=== PATIENT | female | born 1960 | race Caucasian/White ===

== ENCOUNTER 2024-05-01 07:52 | Outpatient (CLI) | payer OTHER, SELFPAY ==
--- NOTE | ~2024-05-01 | MR_ITS ---
EXAMINATION: MR lumbar spine wo con DATE: 05/01/2024 08:27 INDICATION: Disc displacement presenting with 3 months of right buttock pain while walking TECHNIQUE: Magnetic resonance imaging (MRI) of the lumbar spine was performed without intravenous con trast. Sequences included sagittal T2-weighted FSE, sagittal T2-weighted FS FSE, sagittal T1-weighted FSE, and axial T2-weighted FSE. COMPARISON: None FINDINGS: Alignment is normal. Vertebral body heights are normal. T1 hyperintense fibrofatty degenerative endpl ate changes at the left side of L5-S1 as well as along the margins of Schmorl's nodes at the right po sterior aspect of the superior endplates of the L4 and L5 vertebral bodies. Mild disc desiccation thr oughout the lumbar spine without disc height loss at T12-L1 with mild disc height loss at L1-L2, L3-L 4 through L5-S1 and with moderate disc height loss at L2-L3. There is associated fibrovascular degene rative endplate changes along the anterior superior plate of L3. Small T1 hyperintense likely hemangi grady at L2. Marrow signal is otherwise unremarkable. There are annular fissures at L1-L2 through L5-S1 . The conus medullaris terminates at L1-L2. There is normal signal in the caudal spinal cord. Paraver tebral soft tissues are unremarkable. The following disc levels are specifically discussed: T12-L1: Disc is mildly bulging. There is moderate bilateral facet joint osteoarthritis. There is no n eural foraminal stenosis. There is no central canal stenosis. L1-L2: Disc is mildly bulging with superimposed annular fissure and moderate sized left paracentral d isc protrusion. There is mild bilateral facet joint osteoarthritis. There is minimal left neural fora solo stenosis. There is mild stenosis of the central canal and left lateral recess. L2-L3: Diffuse disc bulge. There is mild bilateral facet joint osteoarthritis. There is mild bilatera l neural foraminal stenosis. There is mild central canal stenosis. L3-L4: Disc is mildly bulging. There is moderate left and severe right facet joint osteoarthritis. Th ere is mild bilateral neural foraminal stenosis. There is mild central canal stenosis. L4-L5: Annular fissure with central disc protrusion which extends from foraminal zone to foraminal zo ne. There is severe bilateral facet joint osteoarthritis. There is moderate left and mild to moderate right neural foraminal stenosis. There is mild central canal stenosis. L5-S1: Annular fissure with central to left foraminal zone disc protrusion. There is moderate right a nd severe left facet joint osteoarthritis. There is mild bilateral neural foraminal stenosis. There i s mild central canal stenosis. IMPRESSION: 1. Mild to moderate lumbar spondylosis. Reviewed, dictated and finalized at location A.
== END 2024-05-01 07:53 | disposition home or self-care (01) ==
LOC: MICIMG 07:53
PROVIDERS: PCP Family Medicine; Visit Provider Nurse Practitioner
DX: M47.816 Spondylosis without myelopathy or radiculopathy, lumbar region (principal); M51.26 Other intervertebral disc displacement, lumbar region
CPT/HCPCS: 72148

== ENCOUNTER 2024-05-09 11:02 | Day surgery (SDC) | payer OTHER, SELFPAY ==
[2024-04-09 11:08] VITALS: BMI 35.3
[2024-04-22 10:41] VITALS: BMI 32.9
[2024-05-09 12:50] VITALS: BMI 32.7
[2024-05-09 12:52] VITALS: BP 126/94; PULSE 84; RESP 16; TEMP 36.9; O2SAT 97
[2024-05-09] MEDS: LACTATED RINGERS 1,000 ML 150 ML IV CONT (13:09)
--- NOTE | 2024-05-09 13:25 | PM.HPGS ---
History of Present Illness History of Present Illness Consent: Risks, benefits, and alternatives have been discussed and questions answered. Patient agrees to proceed with procedure. Chief complaint: Neoplasm Screening Narrative: Irina Kim is a 64 year old female presents for screening colonoscopy. Patient's current weight appetite and bowel movements are normal. Patient denies abdominal pain. She has had no bleeding. Family history non S colonoscopy 12 years ago was unremarkable. Review of Systems Review of Systems: All systems reviewed & are unremarkable except as noted in HPI and below PMFSH Past Medical History Medical History (Updated 05/09/24 @ 13:27 by Felix De Luna MD) Hyperlipidemia Hypertension Social History Social History Smoking status: Former smoker Tobacco type: cigarettes Alcohol intake: current Drinks per week: 7 Substance use type: does not use Living arrangements: with family Spiritual care concerns: No Meds Home Medications and Allergies Home Medications Medication Instructions Recorded Confirmed Type aspirin 81 mg tablet 81 mg PO DAILY 04/22/24 05/09/24 History ezetimibe 10 mg tablet 10 mg PO DAILY 04/22/24 05/09/24 History naproxen sodium 220 mg tablet 220 mg PO BID PRN Pain 04/22/24 05/09/24 History (Aleve) olmesartan 40 1 tablet PO DAILY 04/22/24 05/09/24 History mg-hydrochlorothiazide 12.5 mg tablet omega-3 700 mg-dha and epa 600 1 cap PO DAILY 04/22/24 05/09/24 History mg-fish and krill oil 900 mg capsule Allergies Allergy/AdvReac Type Severity Reaction Status Date / Time No Known Allergies Allergy Verified 05/09/24 12:47 Vital Signs Vital Signs - 24 hr 05/09/24 12:52 Temperature 98.5 F Pulse Rate 84 Respiratory Rate 16 Blood Pressure 126/94 H Pulse Oximetry 97 Oxygen Delivery Room Air Exam Narrative: Physical exam reveals patient to be alert. Vital signs stable. HEENT exam is unremarkable. Patient is anicteric. Lungs are clear to auscultation and to percussion. Heart is without murmur or extra sounds. Abdomen bowel sounds are present soft nontender with no organomegaly. Digital external rectal exam is normal. Assessment and Plan Assessment and plan (1) Screen for colon cancer: Code(s): Z12.11 - Encounter for screening for malignant neoplasm of colon Status: Acute Assessment and Plan: Presents today for neoplasia screening colonoscopy. Further recommendations will be given after endoscopy.
--- NOTE | 2024-05-09 13:55 | WPDANESEPPF ---
Anes - Initial Pre Proc Eval Procedure: Operation Date: 05/09/24 13:30 Proposed Procedures p Screening Colonoscopy - Felix De Luna MD Date/Time: 05/09/24 13:55 Surgeon: Felix De Luna MD Pre Op Diagnosis: Neoplasm Screening Patient Data Age: 64 Gender: F Height: 1.7 m Weight: 94.8 kg Last Vital Signs Temp 36.9 C 05/09/24 12:52 Pulse 84 05/09/24 12:52 Resp 16 05/09/24 12:52 BP 126/94 H 05/09/24 12:52 Pulse Ox 97 05/09/24 12:52 O2 Del Method Room Air 05/09/24 12:52 Allergies Allergy/AdvReac Type Severity Reaction Status Date / Time No Known Allergies Allergy Verified 05/09/24 12:47 Home Medications Medication Instructions Recorded Confirmed Type aspirin 81 mg tablet 81 mg PO DAILY 04/22/24 05/09/24 History ezetimibe 10 mg tablet 10 mg PO DAILY 04/22/24 05/09/24 History naproxen sodium 220 mg tablet 220 mg PO BID PRN Pain 04/22/24 05/09/24 History (Aleve) olmesartan 40 1 tablet PO DAILY 04/22/24 05/09/24 History mg-hydrochlorothiazide 12.5 mg tablet omega-3 700 mg-dha and epa 600 1 cap PO DAILY 04/22/24 05/09/24 History mg-fish and krill oil 900 mg capsule Patient hx anesthesia problems: none Family hx anesthesia problems: none Results Review: All pre-operative results and documents have been reviewed as part of the pre-operative evaluation. [facility] Past Medical History Medical History (Updated 05/09/24 @ 13:27 by Felix De Luna MD) Hyperlipidemia Hypertension Social History Social History (Updated 05/09/24 @ 13:56 by Zach Arnold DO) Smoking status: Former smoker Tobacco type: cigarettes Alcohol intake: current Drinks per week: 7 Substance use type: does not use Other substance usage details: 1-2 drinks/day Living arrangements: with family Spiritual care concerns: No Anes - Eval Final PreProcedure Day of Procedure 05/09/24 13:55 Patient weight: obese Heart: regular rate and rhythm Lungs: clear to auscultation Airway: Mallampati scale class II Neurological: alert and oriented Last oral intake: >/= 8 hours ASA classification: III Emergent: no Anesthetic plan: proceed Anesthesia type and monitoring: general GIVS and standard monitoring Results Review: All pre-operative results and documents have been reviewed as part of the pre-operative evaluation. Informed Consent: The patient's anesthetic plan and its attendant risks and benefits were discussed with the patient/family/POA. Questions were solicited and answers provided to the satisfaction of the patient/family/POA.
[2024-05-09 14:42] VITALS: BP 125/74; PULSE 85; RESP 16; O2SAT 98
--- NOTE | 2024-05-09 14:45 | WPDANESPN ---
Anes - Prog Note Post-Op Date/Time: 05/09/24 14:45 Cardiovascular status: normal Respiratory status: normal Airway patency: baseline Mental status: baseline Post-Op hydration status: normal Vital Signs: Last Vital Signs Temp 36.9 C 05/09/24 12:52 Pulse 84 05/09/24 12:52 Resp 16 05/09/24 12:52 BP 126/94 H 05/09/24 12:52 Pulse Ox 97 05/09/24 12:52 O2 Del Method Room Air 05/09/24 12:52 Pain Score (VAS): 0 I/O: Intake & Output 05/08/24 05/09/24 05/09/24 23:59 07:59 15:59 Intake Total 500 Balance 500 Post-procedural complaints: none Patient Feedback: Patient satisfied with anesthetic care. Other Findings: Patient vital signs back to baseline. Patient denies nausea and vomiting. Patient's pain under control. Patient OK for discharge.
--- NOTE | 2024-05-09 14:47 | WPDANESPN ---
Anes - Prog Note Post-Op Date/Time: 05/09/24 14:47 Cardiovascular status: normal Respiratory status: normal Airway patency: baseline Mental status: baseline Post-Op hydration status: normal Vital Signs: Last Vital Signs Temp 36.9 C 05/09/24 12:52 Pulse 85 05/09/24 14:42 Resp 16 05/09/24 14:42 BP 125/74 05/09/24 14:42 Pulse Ox 98 05/09/24 14:42 O2 Del Method Room Air 05/09/24 14:42 Pain Score (VAS): 0 I/O: Intake & Output 05/08/24 05/09/24 05/09/24 23:59 07:59 15:59 Intake Total 500 Balance 500 Post-procedural complaints: none Patient Feedback: Patient satisfied with anesthetic care. Other Findings: Patient vital signs back to baseline. Patient denies nausea and vomiting. Patient's pain under control. Patient OK for discharge.
[2024-05-09 14:52] VITALS: BP 117/81; PULSE 79; RESP 15; O2SAT 98
[2024-05-09 15:02] VITALS: BP 121/87; PULSE 69; RESP 15; O2SAT 99
== END 2024-05-09 13:08 | disposition home or self-care (01) ==
PROVIDERS: PCP Family Medicine; Visit Provider Internal Medicine Gastroenterology
PROC: 0DJD8ZZ Inspection of Lower Intestinal Tract, Via Natural or Artificial Opening Endoscopic (ICD-10-PCS; CPT 45378; principal; 2024-05-09 13:30)
DX: Z12.11 Encounter for screening for malignant neoplasm of colon (principal); K64.8 Other hemorrhoids
CPT/HCPCS: 45378

== ENCOUNTER 2025-01-16 13:19 | Outpatient (CLI) | payer OTHER, SELFPAY ==
--- NOTE | ~2025-01-16 | MM_ITS ---
EXAMINATION: MM screening radha BI w roderick HISTORY: Screening mammogram TECHNIQUE: Craniocaudal and mediolateral oblique 3-D tomosynthesis images were obtained and synthetic 2-D images were generated. CAD analysis was submitted and interpreted. COMPARISON: 06/19/2017 BREAST PARENCHYMAL COMPOSITION:Not Dense. There are scattered areas of fibroglandular density. FINDINGS: No suspicious mass, calcification, or architectural distortion are identified in either luad ast to suggest malignancy. There has been no suspicious interval change. IMPRESSION: No mammographic evidence of malignancy. Recommend routine screening mammography in one year. BI-RADS Category 1: Negative Reviewed, dictated and finalized at location .
== END 2025-01-16 13:20 | disposition home or self-care (01) ==
PROVIDERS: PCP Family Medicine; Visit Provider Student in an Organized Health Care Education/Training Program
DX: Z12.31 Encounter for screening mammogram for malignant neoplasm of breast (principal)
CPT/HCPCS: 77063; 77067